=== PATIENT | female | born 1970 | race Caucasian/White ===

== ENCOUNTER 2019-04-22 10:43 | Outpatient (CLI) | payer BC, SELFPAY ==
--- NOTE | 2019-04-22 10:50 | DI.RAD_ITS ---
SYMPTOMS/DIAGNOSIS: PAIN AND GANGLION RT WRIST RIGHT WRIST: Three views. No bone or joint abnormality is identified. There is focal soft tissue prominence of the anterior aspect of the wrist. No associated soft tissue calcifications are seen. If there is continued concern, ultrasound or MRI should be considered to assess for soft tissue mass.
== END 2019-04-22 11:03 ==
PROVIDERS: Visit Provider Student in an Organized Health Care Education/Training Program
DX: M25.531 Pain in right wrist (principal); M67.431 Ganglion, right wrist; M79.89 Other specified soft tissue disorders
CPT/HCPCS: 73110

== ENCOUNTER 2019-05-12 12:26 | Day surgery (SDC) | payer BC, SELFPAY ==
--- NOTE | 2019-05-12 11:45 | W.PM.DSUDISC ---
Discharge Plan Disposition Patient Disposition: HOME Condition: Good Discharge Details Reason For Visit: Right Volar Wrist Ganglion Attending Provider: Miles Caldera Primary Care Provider: Crispin Schultz Home Meds and New Rx's Prescriptions: No Action Multivitamin Gummy 1 tab PO DAILY RF: 0 Discharge Instructions Additional Instructions: Activity: You should keep the hand elevated as much as possible for the first few days. You may use the fingers as tolerated but avoid trying to do too much too soon. You may perform light activities with the splint in place. Dressing/Cast: Your splint should stay in place at all times. Do NOT get it wet. You may loosen the DELLA wrap if you feel it is too tight and then rewrap more loosely. Medications: - You should take Tylenol and Ibuprofen for baseline pain control. - You have Hydrocodone for breakthrough pain. - You may apply ice over the thumb. Follow-up: 7-10 days Referrals: Miles Caldera MD [ [facility] STAFF PHYSICIAN] - Equipment/Supplies: Splint and Sling Activity:: Elevate Remove Dressings/Wound Care:: Do Not Remove Shower/Bathe:: Cover Diet:: As Tolerated Discharge Orders Discharge Orders: Discharge Order (Routine); Ordered 05/12/19 Ordered By: Miles Caldera DS: Diagnosis Discharge Diagnosis (1) Ganglion cyst of volar aspect of right wrist: Status: Acute
[2019-05-12 12:38] VITALS: BP 98/58; PULSE 64; RESP 16; TEMP 36.5; O2SAT 98
[2019-05-12] MEDS: Lactated Ringers 1,000 ML 80 ML IV (12:51)
[2019-05-12] MEDS: Bupivacaine 0.5% Pres-Free 30 ML VIAL (14:04)
[2019-05-12 14:45] VITALS: BP 107/65; PULSE 53; RESP 16; TEMP 36.6; O2SAT 100
--- NOTE | 2019-05-12 19:26 | W.PM.OP ---
Date of service: 05/12/19 Time of Service: 15:26 Operative Note DATE OF PROCEDURE: 05/12/19 PRE-OP DIAGNOSIS: Right Volar Wrist Ganglion Cyst POST-OP DIAGNOSIS: same PROCEDURE: Excision of right volar wrist ganglion SURGEON: Miles Caldera ANESTHESIA: regional ([place] [facility]) ESTIMATED BLOOD LOSS: 0 PATHOLOGY: none sent TOURNIQUET TIME: 22 COMPLICATIONS: None Patient was transported to: same day Patient's condition: stable Indications: Claudette is a 49-year-old who has had a ganglion cyst of the right wrist. It has become quite larger it is putting tension on the skin and causes pain with all motions and activities. It makes it difficult for her to work on her computer. She has tried to limit this for some time but now would like it removed. Reviewed the risk of the procedure to remove it. These included bleeding, infection, pain, stiffness, damage to nerves and vessels, damage to muscle and tendons, and recurrence. Despite these risks, she elected to proceed. Findings: There is a volar wrist ganglion encountered. It had no atypical features. It was traced down to the radial scaphoid joint. Procedure Description: Claudette was greeted in the preoperative holding area. Her identity was confirmed the correct site was identified and marked. The consistent with the patient is signed. History physical was updated. She was taken to the operating room. The right arm was identified as the correct site. Prophylactic and Biaxin from cefazolin were given. A timeout was performed for safe surgery. A [place] block was administered by anesthesia, Arlen Faustin CRNA. Once CPR block was up and the tourniquet was on, the right arm was prepped with ChloraPrep and draped in standard fashion. A 2 cm incision was made overlying the flexor carpi ulnaris tendon of the right wrist which was adjacent to the mass. The skin was dissected sharply. The deep tissues was dissected with blunt dissection using a tenotomy scissor. The cyst capsule was identified. To aid exposure and dissection, the cyst was ruptured. The cystic structure was held and traced down to the radius scaphoid joint. Once fully encountered to the level of the wrist joint it was excised. The opening into the wrist joint was debrided. There is no apparent remnant cyst material. The wound was then irrigated. The deep tissue was closed with a 3-0 Vicryl. The skin was closed with a running 3-0 Monocryl followed by skin glue. The wound was dressed with 4 x 4's, web roll, short arm splint. At the end the case all counts are correct. Since there were no atypical findings the cyst was not sent to pathology. She tolerated procedure well and was transferred back to same-day surgery area in stable condition.
--- NOTE | 2019-05-12 19:33 | ROE_ITS ---
Date of service: 05/12/19 Time of Service: 15:26 Operative Note DATE OF PROCEDURE: 05/12/19 PRE-OP DIAGNOSIS: Right Volar Wrist Ganglion Cyst POST-OP DIAGNOSIS: same PROCEDURE: Excision of right volar wrist ganglion SURGEON: Miles Caldera ANESTHESIA: regional ([place] [facility]) ESTIMATED BLOOD LOSS: 0 PATHOLOGY: none sent TOURNIQUET TIME: 22 COMPLICATIONS: None Patient was transported to: same day Patient's condition: stable Indications: Claudette is a 49-year-old who has had a ganglion cyst of the right wrist. It has become quite larger it is putting tension on the skin and causes pain with all motions and activities. It makes it difficult for her to work on her computer. She has tried to limit this for some time but now would like it removed. Reviewed the risk of the procedure to remove it. These included bleeding, infection, pain, stiffness, damage to nerves and vessels, damage to muscle and tendons, and recurrence. Despite these risks, she elected to procee d. Findings: There is a volar wrist ganglion encountered. It had no atypical features. It was traced down to the radial scaphoid joint. Procedure Description: Claudette was greeted in the preoperative holding area. Her identity was confirmed the correct site was identified and marked. The consistent with the patient is signed. History physical was updated. She was taken to the operating room. The right arm was identified as the correct site. Prophylactic and Biaxin from cefazolin were given. A timeout was performed for safe surgery. A [place] block was administered by anesthesia, Arlen Faustin CRNA. Once CPR block was up and the tourniquet was on, the right arm was prepped with ChloraPrep and draped in standard fashion. A 2 cm incision was made overlying the flexor carpi ulnaris tendon of the right wrist which was adjacent to the mass. The skin was dissected sharply. The deep tissues was dissected with blunt dissection using a tenotomy scissor. The cyst capsule was identified. To aid exposure and dissection, the cyst was ruptured. The cystic structure was held and traced down to the radius scaphoid joint. Once fully encountered to the level of the wrist joint it was excised. The opening into the wrist joint was debrided. There is no apparent remnant cyst material. The wound was then irrigated. The deep tissue was closed with a 3-0 Vicryl. The skin was closed with a running 3- 0 Monocryl followed by skin glue. The wound was dressed with 4 x 4's, web roll, short arm splint. At the end the case all counts are correct. Since there were no atypical findings the cyst was not sent to pathology. She tolerated procedure well and was transferred back to same-day surgery area in stable condition.
== END 2019-05-12 15:05 | disposition home or self-care (01) ==
LOC: SUR 12:27
PROVIDERS: PCP Internal Medicine; Visit Provider Student in an Organized Health Care Education/Training Program
PROC: (CPT 25111; principal; 2019-05-12 14:30)
DX: M67.431 Ganglion, right wrist (principal)
CPT/HCPCS: 25111; J1885; J2250; L3650

== ENCOUNTER 2022-01-16 18:44 | Outpatient (REF) | payer BC, SELFPAY ==
--- NOTE | 2022-01-16 16:45 | PAPFT_PTH ---
PATIENT: Claudette Patel LOC: [facility]#:[id number] AGE/SX: 51/F ROOM: RE01/16/[address]: Angel Petersen : 1970 BED: DIS: 01/16/2022 SPEC #: [id number] RECD: 01/17/22 13:05 STATUS: IRIS OBRIEN #: [id number] ARLEY: 01/16/22 16:[address]: Nadege Petersenlaide [facility]PT[facility] Cytology RECD BY: Joselyn Mcfadden ENTERED: 01/17/22 13:05 SP TYPE: PAPFT OTHR DR: Crispin Schultz Tissues: 1 - CX/ENDOCX FOR PAP SMEARS Procedures: PAP THIN PREP/UVM Screening HPV DNA PROBE Comments: [id number]
== END 2022-01-16 18:45 | disposition home or self-care (01) ==
LOC: NCHCN 18:44
PROVIDERS: PCP Internal Medicine; Visit Provider Nurse Practitioner Family
DX: N89.8 Other specified noninflammatory disorders of vagina (principal); Z12.4 Encounter for screening for malignant neoplasm of cervix
CPT/HCPCS: 88142; 87480; 87510; 87624; 87660

== ENCOUNTER 2022-05-07 16:55 | Outpatient (REF) | payer BC, SELFPAY ==
[2022-05-07 20:03] LABS: Abs Immature Grans 0.02 10^3/uL (0.0-0.06); Absolute Basophil Count 0.07 10^3/uL (0.0-0.2); Absolute Eosinophil Count 0.24 10^3/uL (0.0-0.7); Absolute Lymphocyte Count 2.06 10^3/uL (1.2-3.4); Absolute Monocyte Count 0.52 10^3/uL (0.1-0.8); Absolute Neutrophil Count 5.08 10^3/uL (1.2-6.7); Basophils % 0.9; HCT 38.4 % (36.0-46.0); Immature Grans % 0.3; Lymphocytes % 25.8; MCH 30.7 pg (27.0-33.0); MCHC 33.9 % (32.0-36.0); MCV 91 fL (80-95); MPV 12.3 fL (8.0-11.0); Monocytes % 6.5; Neutrophils % 63.5; Platelet Count 306 10^3/uL (130-400); RBC 4.24 10^6/uL (3.93-5.22); RDW 12.2 % (11.7-14.6); RDW-SD 40.6 fL; WBC 7.99 10^3/uL (4.4-10.8)
[2022-05-07 20:47] LABS: TSH 1.05 uIU/mL (0.36-3.74)
== END 2022-05-07 16:56 | disposition home or self-care (01) ==
LOC: NCHCN 16:55
PROVIDERS: PCP Internal Medicine; Visit Provider Nurse Practitioner Family
DX: R00.2 Palpitations (principal)
CPT/HCPCS: 84443; 85025

== ENCOUNTER 2022-07-10 01:24 | Outpatient (CLI) | payer BC, SELFPAY ==
--- NOTE | 2022-07-10 09:00 | ETT_ITS ---
APPROVED REPORT Exam: Exercise Treadmill Patient Location: Out-Patient Room/Bed: Stress Nurse: Christi Rudd RN Ordering Provider:TAE PENNINGTON, Contact Number: [phone] BMI: 23.88 Baseline Rhythm: Sinus Rhythm Indications: Chest pain, Palpitations Medical History Medical History: SOB, Chest pain, Anxiety, Palpitations Cardiac Medications: Metoprolol Succinate Allergies: None Cardiac Risk Factors: None Previous Cardiac Procedures: None Pretest Chest Pain Characteristics: None Exercise History: Physically active Physical Disabilities: None Lung Sounds: Clear to air, bilaterally Heart Sounds: S1/S2 Stress Test Details Test: Exercise stress testing was performed using a Mahesh protocol. Rest Stress HR Resting HR Supine: 64 bpm Max Heart Rate (APMHR): 167 bpm Resting HR Standin bpm Target HR (85% APMHR): 141 bpm Max HR Achieved: 150 bpm % of APMHR: 89 Recovery HR: 83 bpm HR response to stress: Normal HR response to stress BP Resting BP Supine: 112/70 mmHg Resting BP Standin/70 mmHg Max BP: 142/70 mmHg Recovery BP: 108/68 mmHg BP response to stress: Normal blood pressure response to stress. ECG Resting ECG: Sinus Rhythm Ectopy: None Stress ECG: Sinus Tachycardia ST Change: No significant ST segment changes noted Arrhythmia: None Recovery ECG: Sinus Rhythm Recovery ST Change: No significant ST segment changes noted Recovery Arrhythmia: None Clinical Reason for Termination: Fatigue Stress Symptoms: General Fatigue Exercise duration: 9 min41 sec Highest Stage Reached: Stage 3: 3.4 mph at 14% grade. Exercise capacity: 11.30 METs Angina Score: None Lopez Treadmill Score: 9.2 Rate Pressure Product: [id number] Stress ECG Conclusion 1. The resting electrocardiogram was within normal limits 2. Patient exercised on the Mahesh protocol and completed a workload of 11.3 METS, stopping due to fat igue 3. Normal heart rate and blood pressure response to exercise. The patient achieved 89% of predicted heart rate for age 4. There was no electrocardiographic evidence of myocardial ischemia 5. There were no dysrhythmias Lopez Treadmill Score is 9.2 which is Low risk. Stress Test Summary STAGE Time (mins) Speed (mph) Grade (%) HR BP SpO2 SYMPTOMS METS Supine 64 112/70 Standing 72 98/70 96% 1 3 1.7 10 98 118/68 98% 4.5 2 6 2.5 12 114 126/62 96% 7 3 9 3.4 14 135 142/70 96% 10 1 min recovery 121 132/58 3 min recovery 88 128/66 95% 6 min recovery 83 108/68 Patient tolerated stress test well. When inquiring about her pretest symptoms patient stated her ches t was tight but that this tightness was her baseline and that it was not any different or worse than what it has been. Patient denied any change in chest tightness before, during, or after the stress test. Patient denied any other symptoms with testing.
== END 2022-07-10 01:44 ==
PROVIDERS: PCP Internal Medicine; Visit Provider Nurse Practitioner Family
DX: R07.9 Chest pain, unspecified (principal); R00.2 Palpitations
CPT/HCPCS: 93017

== ENCOUNTER → 2022-08-15 02:12 | Outpatient (CLI) | payer BC, SELFPAY ==
--- NOTE | 2022-08-15 14:00 | DI.US_ITS ---
APPROVED REPORT EXAM: Comprehensive 2D, Doppler, and color-flow Echocardiogram Patient Location: Out-Patient Chemical Process Operator: Miriam Day RDCS (AE) Indications: Chest pain Other Information Study Quality: Adequate Conclusion Normal left ventricular wall thickness and chamber size. Estimated ejection fraction is 60 to 65%. Wall motion is normal Normal right ventricular size and systolic function Both atria are normal in size There are no structural or hemodynamically significant valvular abnormalities Normal estimated right ventricular systolic pressure 24 mmHg Wall motion Left Ventricle The left ventricle is normal size. The left ventricular systolic function is normal. The left ventric ular ejection fraction is within the normal range. There is normal left ventricular wall thickness. T here is normal LV segmental wall motion. There is no ventricular septal defect visualized. LVEF is 60 -65%. Right Ventricle The right ventricle is normal size. The right ventricular systolic function is normal. The RVSP is 23 .7mmHg. Atria The left atrium size is normal. The right atrium size is normal. The interatrial septum is intact wit h no evidence for an atrial septal defect. Aortic Valve The aortic valve is normal in structure. Aortic valve is trileaflet. There is no aortic valvular sten osis. No aortic regurgitation is present. Mitral Valve The mitral valve is normal in structure. No evidence of mitral valve stenosis. Trace to mild mitral r egurgitation. Tricuspid Valve The tricuspid valve is normal in structure. There is no tricuspid valve stenosis. Mild tricuspid regu rgitation. Pulmonic Valve The pulmonary valve is normal in structure. There is no pulmonic valvular stenosis. There is no pulmo delmi valvular regurgitation. Great Vessels The aortic root is normal in size. The ascending aorta is normal in size. Aortic arch is normal in ca liber. IVC is normal in size and collapses >50% with inspiration. Pericardium There is no pericardial effusion. 2D Dimensions IVSD d PLAX 0.65 cm F: 0.6-1.0 LV Vol A2C d MOD 67.2 mL LVPW d PLAX 0.69 cm F: 0.6 - 1.0 LV Vol A4C d MOD 56.1 mL LVID d PLAX 4.28 cm F: 3.8 - 5.2 LA vol/ BSA A2C s A-L 21.4 mL/m2 LVDs 2.70 cm F: 2.2 - 3.5 LA vol/ BSA A4C s A-L 13.4 mL/m2 Ao Root d 2.92 cm F: 2.7 - 3.3 LA Vol/ BSA Biplane s A-L 17.8 mL/m2 RA Area A4C 11.18 cm2 LA Area A4C s MOD 10.85 cm2 RA Vol/ BSA A4C s A-L 15.5 mL/m2 LA Area A2C s MOD 14.40 cm2 Ao Asc Diam d 3.16 cm F: 2.3 - 3.1 LV EF A4C MOD 60.5 % LV EF Teichholz 66.9 % LV EF A2C MOD 65.1 % LVEF (Kirk's) 63.48 % F: 54 - 74 LV EF Biplane MOD 63.5 % LV Volume 49.01 mL F: 46 - 106 SV 39.68 mL LV Volume Index 27.84 mL/m2 F: 29 - 61 SV Index 22.55 mL/m2 LV Vol Biplane MOD 62.5 mL FS 36.75 % M-Mode TAPSE 2.07 cm (M/F) >1.7 LV Diastology MV E' medial 0.100 (>0.07 m/s) E/A Ratio 1.3 LV E/e MED 7.45 (<14) MV E Vmax 0.75 (0.4-1.3 m/s) MV E' lateral 0.130 (>0.1 m/s) MV A Vmax 0.60 (0.4-1.3 m/s) LV E/e LAT 5.75 (<14) MV E/A Ratio 1.21 MV E/E' medial 7.48 MV E/E' lateral 5.79 Aortic Valve LVOT Area 2.91 cm2 AoV Area Vmax 2.31 cm2 LVOT Vmax 0.93 m/s AoV Area/ BSA (Vmax) 1.31 cm2/m2 LVOT Mean Trey. 0.57 m/s MAREN Mean Trey. 2.06 cm2 LVOT Peak Grad 3.4 mmHg MAREN Mean Trey. Index 1.17 cm2/m2 LVOT Mean Grad 1.6 mmHg LVOT VTI 0.219 m LVOT Diam s 1.90 cm AoV Vmax 1.17 m/s Velocity Ratio 0.79 AoV Mean Trey. 0.81 m/s AoV Peak Grad 5.5 mmHg LVOT SV 63.78 mL AoV Mean Grad 2.9 mmHg AoV VTI 0.269 m AoV Area VTI 2.37 cm2 AoV Area/ BSA (VTI) 1.35 cm/m2 Mitral Valve MV DT 176 (160-240 msec) MV PHT 51 msec MV Area PHT 4.31 cm2 MV VTI 0.338 m MV Area VTI 1.88 (4.0-6.0 cm2) Pulmonary Valve PV Vmax 0.72 (0.5-1.5 m/s) RVOT Peak Gr. 0.92 mmHg PV Peak Grad 2.1 mmHg RVOT Mean Gr. 0.50 mmHg PV Mean Grad 1.1 mmHg RVOT VTI 0.123 m PV VTI 0.167 m RVOT Vmax 0.48 m/s Tricuspid Valve TR Peak Grad 20.6 mmHg TR Vmax 2.27 m/s RA Pressure 3.00 mmHg RVSP (TR) 23.7 mmHg
== END ==
PROVIDERS: PCP Internal Medicine; Visit Provider Nurse Practitioner Family
DX: R07.89 Other chest pain (principal)
CPT/HCPCS: 93306